=== PATIENT | male | born 1970 | race African-American/Black ===

== ENCOUNTER 2020-11-08 08:29 | Day surgery (SDC) | payer BC ==
[2020-11-04 12:30] VITALS: BMI 35.1
[2020-11-08] MEDS ORDERED: PROPOFOL 20 ML ONE (10:07)
[2020-11-08 11:03] VITALS: TEMP 97.4
[2020-11-08 11:05] VITALS: BP 120/84; PULSE 80
== END 2020-11-08 11:27 | disposition home or self-care (01) ==
LOC: FASU-ENDO 08:29
PROVIDERS: ATTEND Internal Medicine Gastroenterology
PROC: 0DJD8ZZ Inspection of Lower Intestinal Tract, Via Natural or Artificial Opening Endoscopic (ICD-10-PCS; principal; 2020-11-08)
DX: Z12.11 Encounter for screening for malignant neoplasm of colon (principal); K57.30 Diverticulosis of large intestine without perforation or abscess without bleeding